=== PATIENT | female | born 1995 | race Caucasian/White ===

== ENCOUNTER 2018-08-09 04:00 | Emergency (ER) | payer SELFPAY ==
[2018-08-09 04:15] VITALS: RESP 16
--- NOTE | 2018-08-09 05:07 | C.PDOC ---
History Of Present Illness 22 y/o female is brought in by her friends for alcohol intoxication. States they were visiting from out of town and had drinks late at night. At an apartment they were staying, friends found her shaking but not seizing, which prompted them to bring her to ER. Patient is actively vomiting but speaking in a clear voice. Patient has a history of GERD. Time Seen by Provider: 08/09/18 04:26 Chief Complaint (Nursing): Substance Abuse History Per: Patient History/Exam Limitations: no limitations Onset/Duration Of Symptoms: Hrs Current Symptoms Are (Timing): Still Present Past Medical History Reviewed: Historical Data, Nursing Documentation, Vital Signs Vital Signs: Last Vital Signs Temp 97.3 F L 08/09/18 04:07 Pulse 97 H 08/09/18 04:07 Resp 16 08/09/18 04:07 BP 136/78 08/09/18 04:07 Pulse Ox 100 08/09/18 04:07 Family History: States: No Known Family Hx - Social History Hx Alcohol Use: Yes Hx Substance Use: No - Immunization History Hx Tetanus Toxoid Vaccination: Yes Hx Influenza Vaccination: Yes Hx Pneumococcal Vaccination: No Review Of Systems Constitutional: Negative for: Fever, Chills Cardiovascular: Negative for: Chest Pain Respiratory: Negative for: Shortness of Breath Gastrointestinal: Positive for: Nausea, Vomiting. Negative for: Diarrhea Genitourinary: Negative for: Dysuria Skin: Negative for: Rash Psych: Positive for: Other (Alcohol intoxication) Physical Exam - Physical Exam Appears: Non-toxic, No Acute Distress Skin: Warm, Dry Head: Atraumatic, Normacephalic Eye(s): bilateral: Normal Inspection Oral Mucosa: Moist Neck: Supple Chest: Symmetrical Cardiovascular: Rhythm Regular, No Murmur Respiratory: Normal Breath Sounds, No Rales, No Rhonchi, No Wheezing Gastrointestinal/Abdominal: Soft, No Tenderness Extremity: Bilateral: Atraumatic, Normal Color And Temperature, Normal ROM Neurological/Psych: Oriented x3, Normal Speech ED Course And Treatment O2 Sat by Pulse Oximetry: 100 (RA) Pulse Ox Interpretation: Normal Medical Decision Making Medical Decision Making: pt brought to ed by friends for drinking too much and vomiting. pt has been resting, given pepcid, ivf and zofran. easily aroused at 0620 and walked to bathroom with assistance due to mildly unsteady gait. will alow patient to rest for short while longer for sobriety. 0700 pt easily aroused and able to walk steadily to bathroom. will d/c with zofran; pt to go home with 2 of her friends. Disposition Counseled Patient/Family Regarding: Studies Performed, Diagnosis, Need For Followup, Rx Given - Disposition Disposition: HOME/ ROUTINE Disposition Time: 07:02 Condition: IMPROVED Additional Instructions: Please drink increased fluids today. Avoid alcohol. Take zofran for nausea e very 8 hours (before meals) if needed. Return to ER for any worse symptoms. Prescriptions: Ondansetron ODT [Zofran ODT] 4 mg PO TID #12 odt Instructions: Alcohol Abuse and Alcoholism (DC) Forms: [facility] (Frisian), General Discharge Instructions - Clinical Impression Clinical Impression: Alcohol abuse - PA / PEDIATRIC PSYCHOLOGIST / Resident Statement MD/DO has reviewed & agrees with the documentation as recorded. - Scribe Statement The provider has reviewed the documentation as recorded by the Scribe Stormy Alcazar All medical record entries made by the Alishaibnadia were at my direction and personally dictated by me. I have reviewed the chart and agree that the record accurately reflects my personal performance of the history, physical exam, medical decision making, and the department course for this patient. I have also personally directed, reviewed, and agree with the discharge instructions and disposition.
[2018-08-09] MEDS ORDERED: Sodium Chloride 0.9% 1,000 ML IV ONE (05:09)
[2018-08-09 05:50] LABS: SQUAMOUS EPITHIAL < 1 /hpf (0-5); URINE BACTERIA RARE (<OCC); URINE BILIRUBIN NEGATIVE (NEGATIVE); URINE BLOOD NEGATIVE (NEGATIVE); URINE CLARITY Clear (Clear); URINE COLOR Straw (YELLOW); URINE GLUCOSE (UA) NORMAL (Normal); URINE LEUKOCYTE ESTERASE NEG Leu/uL (Negative); URINE PROTEIN NEGATIVE (NEGATIVE); URINE UROBILINOGEN NORMAL mg/dL (0.2-1.0)
[2018-08-09 06:04] LABS: BARBITURATES, UR NEGATIVE (NEGATIVE); BENZODIAZEPINES, UR NEGATIVE (NEGATIVE); OPIATES, UR NEGATIVE (NEGATIVE); PHENCYCLIDINE, UR NEGATIVE (NEGATIVE)
[2018-08-09 06:33] VITALS: BP 105/62; PULSE 95; TEMP 97.8
[2018-08-09 07:04] VITALS: O2SAT 100
== END 2018-08-09 07:25 | disposition home or self-care (01) ==
LOC: C.ER 04:00
DX: F10.10 Alcohol abuse, uncomplicated (principal)
CPT/HCPCS: 81001; 82948; 96361; 96374; 96375; 99285; G0480; J2405; J7030